=== PATIENT | female | born 1940 | race Caucasian/White ===

== ENCOUNTER 2022-12-13 09:10 | Emergency (ER) | payer OTHER ==
[2022-12-13 09:41] VITALS: BP 140/78; PULSE 77; RESP 16; TEMP 98.6; BMI 23.8
[2022-12-13] MEDS ORDERED: SODIUM CHLORIDE 500 ML IV STA (10:04)
[2022-12-13] MEDS ORDERED: ACETAMINOPHEN 1000 MG/100 ML BAG IVPB ONE (10:05)
[2022-12-13] MEDS ORDERED: ACETAMINOPHEN INJECTION 100 ML IVPB ONE (10:30)
[2022-12-13 10:54] LABS: HEMATOCRIT 38.2 % (32.4-45.2); HEMOGLOBIN 13.2 G/dL (10.7-15.3); MCH 29.1 pg (25.7-33.7); MCHC 34.6 g/dl (32.0-36.0); MEAN CELL VOLUME 84.3 fl (80-96); MEAN PLT VOLUME 8.3 fl (7.5-11.1); PLATELET COUNT 192.6 10^3/uL (134-434); RBC 4.53 10^6/uL (3.60-5.2); WHITE BLOOD COUNT 4.9 10^3/uL (4.0-10.8)
[2022-12-13 11:03] LABS: EPITHELIAL CELLS FEW /hpf
[2022-12-13 11:24] LABS: ALBUMIN 4.3 g/dl (3.4-5.0); BILIRUBIN,TOTAL 1.1 mg/dl (0.2-1); CALCIUM 9.3 mg/dl (8.5-10); CREATININE 0.6 mg/dl (0.55-1.3); TOT PROT 6.9 g/dl (6.4-8.2)
== END 2022-12-13 13:42 | disposition home or self-care (01) ==
LOC: FER 09:10
PROC: 3E0333Z Introduction of Anti-inflammatory into Peripheral Vein, Percutaneous Approach (ICD-10-PCS; principal; 2022-12-13)
PROC: 3E0337Z Introduction of Electrolytic and Water Balance Substance into Peripheral Vein, Percutaneous Approach (ICD-10-PCS; 2022-12-13)
DX: N39.0 Urinary tract infection, site not specified (principal); B02.9 Zoster without complications; R10.32 Left lower quadrant pain
CPT/HCPCS: 36415; 74177-TC; 80053; 81003; 81015; 85025; 87086; 87186; 99285-25